=== PATIENT | female | born 1995 | race African-American/Black ===

== ENCOUNTER 2017-02-09 00:50 | Emergency (ER) | payer OTHER ==
[~2017-02-09] VITALS: Ht 177.8 cm; Wt 69.5 kg
[2017-02-09 00:53] VITALS: Ht 177.8 cm; Wt 69.5 kg
[2017-02-09] MEDS ORDERED: HYDROCODONE/APAP (10/325) TAB PO ONE (04:00)
[2017-02-09 04:05] LABS: ADD SCAN DIFF NO
[2017-02-09 04:08] LABS: BASOPHILS % 0.3 % (0.0-2.0); EOSINOPHILS # 0.1 10^3/ul (0.0-0.5); EOSINOPHILS % 2.6 % (0.0-7.0); HEMATOCRIT 34.6 % (37.0-47.0); HEMOGLOBIN 10.9 g/dl (12.0-16.0); LYMPHOCYTES # 1.7 10^3/ul (0.8-2.9); LYMPHOCYTES % 43.6 % (15.0-51.0); MEAN CORPUSCULAR HEMOGLOBIN 25.2 pg (29.0-33.0); MEAN CORPUSCULAR HGB CONC 31.5 g/dl (32.0-37.0); MEAN CORPUSCULAR VOLUME 80.1 fl (82.0-101.0); MEAN PLATELET VOLUME 9.6 fl (7.4-10.4); MONOCYTE # 0.4 10^3/ul (0.3-0.9); MONOCYTES % 11.3 % (0.0-11.0); NEUTROPHIL # 1.6 10^3/ul (1.6-7.5); NEUTROPHILS % 41.9 % (39.0-77.0); PLATELET COUNT 223 10^3/UL (140-415); RED BLOOD COUNT 4.32 10^6/ul (4.20-5.40); RED CELL DISTRIBUTION WIDTH 13.7 % (11.5-14.5); WHITE BLOOD COUNT 3.9 10^3/ul (4.8-10.8)
[2017-02-09 04:29] LABS: ALBUMIN 4.5 g/dl (3.3-4.9); ALBUMIN/GLOBULIN RATIO 1.95; BILIRUBIN,INDIRECT 0.2 mg/dl (0-1.1); BILIRUBIN,TOTAL 0.2 mg/dl (0.2-1.3); CALCIUM 9.2 mg/dl (8.4-10.2); CREATININE 0.73 mg/dl (0.44-1.00); POTASSIUM 3.7 mmol/L (3.5-5.1); TOTAL PROTEIN 6.8 g/dl (6.1-8.1)
[2017-02-09] MEDS ORDERED: IBUP200C PO (04:36)
[2017-02-09] MEDS ORDERED: IBUP800T25 PO (05:15)
[2017-02-09] MEDS ORDERED: HYDR-906 PO (05:15)
--- NOTE | 2017-02-09 05:18 | ERD ---
ER Documentation Chief Complaint Date/Time DATE: 02/09/17 TIME: 05:16 Chief Complaint abd pain started 8 hours ago; denies N/V/diarrhea; feels want to pass gas HPI This 19-year-old female complains of pain in the diffuse lower abdomen without any nausea vomiting or diarrhea. She states she has had this off and on for years and feels like she needs to pass gas. No dysuria no hematuria no chest pain shortness of breath back pain. She says she had her menstrual cycle last week ROS All systems reviewed and are negative except as per history of present illness. Medications Home Meds Active Scripts Ibuprofen* (Motrin*) 800 Mg Tab, 800 MG PO Q6H Y for PAIN AND OR ELEVATED TEMP, #30 TAB Prov:JULIO BHANDARI DO 02/09/17 Hydrocodone/Acetaminophen (Hersey 5-325 Tablet) 1 Each Tablet, 1 TAB PO Q6H Y for PAIN, #7 TAB Prov:JULIO BHANDARI DO 02/09/17 Reported Medications Ibuprofen* (Ibuprofen*) 200 Mg Capsule, 200 MG PO Q6, CAP 02/09/17 Allergies Allergies: Coded Allergies: No Known Allergy (Unverified , 02/09/17) PMhx/Soc Medical and Surgical Hx: pt denies Surgical Hx History of Surgery: No Anesthesia Reaction: No Hx Neurological Disorder: No Hx Respiratory Disorders: No Hx Cardiac Disorders: No Hx Psychiatric Problems: No Hx Miscellaneous Medical Probl: No (anemia) Hx Alcohol Use: No Hx Substance Use: No Hx Tobacco Use: No Smoking Status: Never smoker FmHx Family History: No coronary disease Physical Exam Vitals Vital Signs Date Time Temp Pulse Resp B/P Pulse Ox O2 Delivery O2 Flow Rate FiO2 02/09/17 00:53 98.4 73 20 117/68 98 Physical Exam C Const: Well-developed, well-nourished Head: Atraumatic, normocephalic Eyes: Normal Conjunctiva, PERRLA, EOMI, normal sclera, no nystagmus ENT: Normal External Ears, Nose and Mouth, moist mucus membranes. Neck: Full range of motion. No meningismus, no lymphadenopathy. Resp: Clear to auscultation bilaterally, no wheezing, rhonchi, rales Cardio: Regular rate and rhythm, no murmurs, S1 S2 present Abd: Soft, very mild diffuse lower abdominal tenderness non distended. Normal bowel sounds, no guarding or rebound, no pulsitile abdominal masses or bruits Skin: No petechiae or rashes, no ecchymosis , no maculopapular rash Back: No midline or flank tenderness Ext: No cyanosis, or edema, FROM x 4, normal inspection, neurovascularly intact x 4 Neur: Awake and alert, STR 5/5 x 4, sensation intact x 4, no focal findings, cerebellum intact Psych: Normal Mood and Affect Result Diagram: 02/09/1734402/09/17 034 Results 24 hrs Laboratory Tests Test 02/09/17 03:45 White Blood Count 3.910^3/ul Red Blood Count 4.3210^6/ul Hemoglobin 10.9g/dl Hematocrit 34.6% Mean Corpuscular Volume 80.1fl Mean Corpuscular Hemoglobin 25.2pg Mean Corpuscular Hemoglobin Concent 31.5g/dl Red Cell Distribution Width 13.7% Platelet Count 42736^3/UL Mean Platelet Volume 9.6fl Neutrophils % 41.9% Lymphocytes % 43.6% Monocytes % 11.3% Eosinophils % 2.6% Basophils % 0.3% Nucleated Red Blood Cells % 0.0/100WBC Neutrophils # 1.610^3/ul Lymphocytes # 1.710^3/ul Monocytes # 0.410^3/ul Eosinophils # 0.110^3/ul Basophils # 0.010^3/ul Nucleated Red Blood Cells # 0.010^3/ul Sodium Level 137mmol/L Potassium Level 3.7mmol/L Chloride Level 105mmol/L Carbon Dioxide Level 25mmol/L Anion Gap 11 Blood Urea Nitrogen 9mg/dl Creatinine 0.73mg/dl Glucose Level 82mg/dl Calcium Level 9.2mg/dl Total Bilirubin 0.2mg/dl Direct Bilirubin 0.00mg/dl Indirect Bilirubin 0.2mg/dl Aspartate Amino Transf (AST/SGOT) 20IU/L Alanine Aminotransferase (ALT/SGPT) 28IU/L Alkaline Phosphatase 48IU/L Total Protein 6.8g/dl Albumin 4.5g/dl Globulin 2.30g/dl Albumin/Globulin Ratio 1.95 Current Medications Medications (Trade) Dose Ordered Sig/Dave Route PRN Reason Start Time Stop Time Status Last Admin Dose Admin Acetaminophen/ Hydrocodone Bitart (Hersey (86/202)) 1 tab ONCE ONCE PO 02/09/17 04:00 02/09/17 04:01 DC 02/09/17 04:04 Procedures/MDM Blood work is unremarkable. Will discharge him with Hersey and Motrin observation. This patient's had this chronic problem for years is likely due to some type of intestinal issue, bad or maldigestion, GI cramps or motility problem or simply just gas Departure Diagnosis: Primary Impression: Abdominal pain Abdominal location: lower abdomen, unspecified Qualified Code: R10.30 - Lower abdominal pain Condition: Stable Patient Instructions: Abdominal Pain Referrals: NO PRIMARY,CARE PHYSICIAN (PCP) JULIO BHANDARI DO Feb 09, 2017 05:18
[2017-02-09 05:42] VITALS: BP 104/59; PULSE 63; RESP 18; TEMP 98.2
== END 2017-02-09 05:44 | disposition home or self-care (01) ==
LOC: E/R 00:50
DX: R10.84 Generalized abdominal pain (principal)
CPT/HCPCS: 80053; 85025; Z7610; 99283